=== PATIENT | male | born 1960 | race Caucasian/White ===

== ENCOUNTER 2018-06-24 18:09 | Inpatient (IN) | payer OTHER ==
[~2018-06-24] VITALS: Ht 182.9 cm; Wt 68.0 kg
--- NOTE | ~2018-06-24 | H ---
[facility] [place] [address] HISTORY AND PHYSICAL Name: ANGELNILESH GHOSH Room #: 462-P ADM IN M.R.#: [id number] Admission: 06/24/18 Attend Phys: Ric Ferrari Discharge: Date of : 62 Report #: [id number] THIS REPORT FOR: //name// CC: Dallas Bruce DATE OF SERVICE: 06/24/2018 CHIEF COMPLAINT: Right leg pain and swelling. HISTORY OF PRESENT ILLNESS: The patient is a 57-year-old gentleman who has had about a week of increased pain, swelling and redness of his right lower leg. He has noted a swollen area about the size of a half dollar in the mid pretibial area for several days. He was seen in the office and an outpatient culture was obtained, which revealed MRSA. He had been treated with Augmentin without improvement. He has now been admitted for IV antibiotic and definitive therapy. PAST MEDICAL HISTORY: Hyperthyroidism. 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 He has had skin lesions in the past. PAST SURGICAL HISTORY: None. FAMILY HISTORY: Noncontributory. SOCIAL HISTORY: A 95-pmqw-fmdx history of smoking. Denies chronic alcohol use. ALLERGIES: None. MEDICATIONS: Methimazole 10 mg daily. REVIEW OF SYSTEMS: He denies headache, chest pain, shortness of breath, abdominal pain, nausea, vomiting, diarrhea, constipation, dysuria, or syncope. OBJECTIVE: VITAL SIGNS: Temperature 36.6, pulse 57, respirations 14, blood pressure 112/68, O2 sat 96% on room air. GENERAL: He is awake and alert, in no distress. HEAD AND NECK: Unremarkable. LUNGS: Clear. HEART: Regular. ABDOMEN: Soft, normoactive bowel sounds. EXTREMITIES: No edema. On the right mid pretibial area, there is a byjs-osxxtx-xjqhm furuncle with some purulent drainage and surrounding erythema. NEUROLOGIC: Intact. ASSESSMENT: Cellulitis and abscess of the right lower leg. [facility] [address] [place] [address] HISTORY AND PHYSICAL Name: NILESH ORTIZ [facility] Room #: 462- ADM IN M.R.#: [id number] Admission: 06/24/18 Attend Phys: Ric Ferrari Discharge: Date of : 62 Report #: [id number] PLAN: Dr. Gary King has ordered analgesics and antibiotics and Dr. Lucio has been consulted for debridement. <ELECTRONICALLY SIGNED> By: Benjamin Jonas MD 06/25/18 1226 [id number] Benjamin Jonas MD /nt
--- NOTE | ~2018-06-24 | D ---
[facility] [place] [address] DISCHARGE SUMMARY Name: NILESH ORTIZ Room #: 462-P [facility] IN M.R.#: [id number] Admission: 06/24/18 Attend Phys: Ric Ferrari Discharge: 06/27/18 Date of : 62 Report #: [id number] THIS REPORT FOR: //name// CC: Dallas Bruce DATE OF SERVICE: 06/27/2018 FINAL DIAGNOSES: Abscess of the right mid lower leg. HOSPITAL COURSE: The patient was admitted with concern of infection and abscess of the right lower leg. Infectious Disease saw him and placed him on Ancef. Dr. Lucio performed a simple incision and debridement with packing of the wound daily. He received 2 more days of IV antibiotics and by the day of discharge the wound was no longer draining. It was relatively flat and fairly shallow. He had instruction on wound care and packing. DISPOSITION: he will be discharged home. Diet and activity as tolerated with Bactrim twice a day for 7 days. He will pack and dress the wound daily, not to submerge until he has healed. Follow up in the office next week before returning to work. By: 1605 1615 Benjamin Jonas MD /nt
[2018-06-24 18:05] VITALS: BP 132/77
[2018-06-24] MEDS ORDERED: METHIMAZOLE10 MG PO (18:59)
[2018-06-24 19:55] VITALS: BP 125/68
[2018-06-24 23:59] VITALS: BP 103/55
[2018-06-25 03:13] VITALS: BP 104/57
[2018-06-25 06:46] LABS: HEMOGLOBIN 12.7 gm/dL (14.0-18.0); MCH 32.6 pg (26.0-34.0); MCHC 33.5 g/dL (28.0-37.0); MCV 97.3 fL (80.0-100.0); PLATELET COUNT 300 thou/uL (150-400); RBC 3.91 mil/uL (4.50-6.00); RDW 12.7 % (10.5-14.5); WBC 5.8 thou/uL (4.0-11.0)
[2018-06-25 06:59] LABS: ALBUMIN 2.9 g/dL (3.4-5.0); CALCIUM 9.7 mg/dL (8.5-10.1); CREATININE 0.9 mg/dL (0.7-1.3); POTASSIUM 3.9 mmol/L (3.5-5.1); TOTAL BILIRUBIN 0.6 mg/dL (<0.1-1.0); TOTAL PROTEIN 6.9 g/dL (6.4-8.2)
[2018-06-25 07:43] VITALS: BP 112/68
[2018-06-25 08:58] LABS: ABSOLUTE NEUTROPHILS 1.6 thou/uL (1.4-8.2); PLATELET ESTIMATE NORMAL
[2018-06-25 15:24] VITALS: BP 112/64
[2018-06-25 19:22] VITALS: BP 121/70
[2018-06-26 05:44] VITALS: BP 155/71
[2018-06-26 08:34] VITALS: BP 122/60
[2018-06-26 17:08] VITALS: BP 126/62
[2018-06-26 19:44] VITALS: BP 130/62
[2018-06-27 04:27] VITALS: BP 117/65
[2018-06-27 08:00] VITALS: BP 112/67
[2018-06-27] MEDS ORDERED: BACTRIM DS TAB1 EACH PO (08:17)
[2018-06-27] MEDS ORDERED: HYDROXYZINE HCL10 M1 PO (08:17)
[2018-06-27 11:39] VITALS: BP 112/67
== END 2018-06-27 13:25 | disposition home or self-care (01) | DRG 603 ==
LOC: 4W 18:09
PROVIDERS: Internal Medicine
PROC: 0HBKXZZ Excision of Right Lower Leg Skin, External Approach (ICD-10-PCS; principal; 2018-06-27)
DX: L03.115 Cellulitis of right lower limb (principal); L02.415 Cutaneous abscess of right lower limb; E05.90 Thyrotoxicosis, unspecified without thyrotoxic crisis or storm; L28.0 Lichen simplex chronicus; F41.9 Anxiety disorder, unspecified; Z87.891 Personal history of nicotine dependence; Z79.899 Other long term (current) drug therapy
CPT/HCPCS: 10045; 10047

== ENCOUNTER 2018-08-12 23:38 | Emergency (ER) | payer OTHER ==
[~2018-08-12] VITALS: Ht 182.9 cm; Wt 69.4 kg
[~2018-08-12 23:38] MED LIST: BACTRIM DS TAB1 EACH PO; HYDROXYZINE HCL10 M1 PO; METHIMAZOLE10 MG PO
[2018-08-12] MEDS ORDERED: AMOXICILLIN 50500 MG PO (23:58)
[2018-08-13 00:18] LABS: HEMATOCRIT 40.3 % (42.0-52.0); HEMOGLOBIN 13.8 gm/dL (14.0-18.0); MCHC 34.2 g/dL (28.0-37.0); MCV 93.7 fL (80.0-100.0); PLATELET COUNT 175 thou/uL (150-400); RBC 4.31 mil/uL (4.50-6.00); RDW 13.2 % (10.5-14.5)
[2018-08-13 00:27] LABS: CALCIUM 9.5 mg/dL (8.5-10.1); POTASSIUM 4.4 mmol/L (3.5-5.1)
[2018-08-13 00:33] LABS: ALBUMIN 2.9 g/dL (3.4-5.0); TOTAL BILIRUBIN 0.5 mg/dL (<0.1-1.0); TOTAL PROTEIN 6.9 g/dL (6.4-8.2)
[2018-08-13 01:02] LABS: ABSOLUTE NEUTROPHILS 8.5 thou/uL (1.4-8.2)
== END 2018-08-13 02:09 | disposition home or self-care (01) ==
LOC: ER 23:38
PROVIDERS: Physician Assistant
DX: L03.116 Cellulitis of left lower limb (principal); R00.0 Tachycardia, unspecified; F17.210 Nicotine dependence, cigarettes, uncomplicated; E03.9 Hypothyroidism, unspecified

== ENCOUNTER 2019-10-30 18:23 | Inpatient (IN) | payer BC, OTHER ==
[~2019-10-30] VITALS: Ht 182.9 cm; Wt 80.9 kg
[~2019-10-30 18:23] MED LIST changes: +AMOXICILLIN 50500 MG PO
[2019-10-30 18:40] LABS: ABSOLUTE NEUTROPHILS 3.7 thou/uL (1.4-8.2); BASOPHILS 0.5 % (0.0-2.0); EOSINOPHILS 0.4 % (0.0-3.0); HEMATOCRIT 48.4 % (42.0-52.0); HEMOGLOBIN 16.2 gm/dL (14.0-18.0); LYMPHOCYTES 13.7 % (24.0-44.0); MCH 33.6 pg (26.0-34.0); MCHC 33.5 g/dL (28.0-37.0); MCV 100.5 fL (80.0-100.0); MONOCYTES 11.7 % (1.0-8.0); PLATELET COUNT 201 thou/uL (150-400); POLYS 73.7 % (36.0-66.0); RBC 4.82 mil/uL (4.50-6.00); RDW 14.8 % (10.5-14.5); WBC 5.1 thou/uL (4.0-11.0)
[2019-10-30 18:49] LABS: ANION GAP 7 mmol/L (7-16); BUN 12 mg/dL (7-18); CALCIUM 9.7 mg/dL (8.5-10.1); CHLORIDE 100 mmol/L (98-107); CO2 30 mmol/L (21-32); CREATININE 1.1 mg/dL (0.7-1.3); GLUCOSE 95 mg/dL (74-106); POTASSIUM 3.7 mmol/L (3.5-5.1); SODIUM 137 mmol/L (136-145)
[2019-10-30 18:59] LABS: SGOT 18 U/L (15-37); SGPT 33 U/L (30-65); TOTAL BILIRUBIN 0.6 mg/dL (<0.1-1.0); TOTAL PROTEIN 8.4 g/dL (6.4-8.2); TROPONIN-I <0.06 ng/mL (<0.06)
[2019-10-30 22:09] VITALS: BP 139/82
[2019-10-30 23:05] VITALS: BP 114/64
[2019-10-30 23:13] VITALS: BP 112/59
--- NOTE | 2019-10-31 04:01 | NUR ---
PT NEW ADMIT. ALERT AND ORIENTED. PT ORIENTED TO ROOM AND CALL LIGHT SYSTEM. ADMISSION ASSESSMENT COMPLETE. PT DENIES CHEST PAIN, OR NAUSEA AND VOMITING. DR KYE RODRIGUEZ NOTIFIED ABOUT PT'S ADMISSION. NO NEW ORDERS GIVEN. PT VOIDS IN TOILET, UP AD ROMEL. CONSENT FORS SIGNS. SR WITH 1D AV BLOCK ON THE MONITOR. NO FURTHER CONCERNS CURRENTLY.
[2019-10-31 04:46] VITALS: BP 94/50
[2019-10-31 07:15] VITALS: BP 105/62
[2019-10-31] MEDS ORDERED: CEFDINIR300 MG PO (08:22)
[2019-10-31] MEDS ORDERED: AZITHROMYCIN500 MG PO (08:23)
[2019-10-31 10:26] VITALS: BP 105/62
[2019-10-31 11:14] VITALS: BP 106/69
--- NOTE | 2019-10-31 14:29 | H ---
[facility] [place] [address] HISTORY AND PHYSICAL Name: NILESH ORTIZ Room #: 213-P ADM IN M.R.#: [id number] Admission: 10/30/19 Attend Phys: Ric Ferrari Discharge: Date of : 62 Report #: [id number] THIS REPORT FOR: //name// CC: Dallas King DATE OF SERVICE: 10/31/2019 CHIEF COMPLAINT: Fever. HISTORY OF PRESENT ILLNESS: The patient is a 59-year-old gentleman who came to the Emergency Room with a 1-day history of fever, chills, shaking and general fatigue. He travels for work and just returned from [place] Thursday night when he awoke Thursday feeling extremely fatigued. He was generally weak all over and had a little bit of a cough throughout the day. He had some shaking chills off and on. His cough caused a little bit of chest discomfort or pain in the left side of his chest with deep inspiration or cough. Overnight on Thursday and Thursday morning, he developed high fever with body aches, headache and congested cough. 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 He reports compliance with his methimazole 10 mg t.i.d. and denies missing any doses. 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 PAST MEDICAL HISTORY: Hyperthyroidism, cellulitis, herpes zoster. FAMILY HISTORY: Noncontributory. SOCIAL HISTORY: He has got a 67-myhf-jmmq history of smoking. 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 ALLERGIES: None. MEDICATIONS: Methimazole 10 mg t.i.d. REVIEW OF SYSTEMS: He denies headache, visual change, nausea, vomiting, diarrhea, constipation, dysuria, syncope or fall weight loss. OBJECTIVE: VITAL SIGNS: Temperature 37, pulse 81, respirations 18, blood pressure 94/50, O2 sat 94% on room air. GENERAL: He is awake and alert, in no distress. HEAD AND NECK: Unremarkable. LUNGS: Faint crackles in the left base. Coarse productive cough. No wheezing. No stridor. HEART: Regular, no murmur. ABDOMEN: Soft, normoactive bowel sounds. [facility] [address] [place] [address] HISTORY AND PHYSICAL Name: NILESH ORTIZ DAVINA Room #: 213-P [facility] IN M.R.#: [id number] Admission: 10/30/19 Attend Phys: Ric Ferrari Discharge: Date of : 62 Report #: [id number] EXTREMITIES: No edema. NEUROLOGIC: Cranial nerves intact. Speech is fluent. He has no tremor. No lid lag. LABORATORY DATA: Pertinent findings include TSH of less than 0.007, T4 of 1.6, T3 is 7.9. Chest x-ray suggests a left basilar infiltrate. ASSESSMENT: 1. Community-acquired pneumonia. 2. Hyperthyroidism. PLAN: He will receive IV antibiotics and his usual home medications. He is eager for early discharge as he travels for work and will consider followup as an outpatient for surgical intervention or radioactive iodine. He is not interested in pursuing surgical intervention during this hospital stay as he has work commitments later in the week. If he is clinically stable, anticipate early discharge to home with oral antibiotics. <ELECTRONICALLY SIGNED> By: Benjamin Jonas MD 10/31/19 1429 [id number] Benjamin Jonas MD /nt
[2019-10-31 15:35] VITALS: BP 107/67
--- NOTE | 2019-10-31 18:14 | NUR ---
ASSUMED CARE AT SHIFT CHANGE, ALERT AND ORIENTED X4, DENIES CP BUT PATIENT STATED THAT HE "FEEL LIKE CRAB". VSS AND AFEBRILE. DR BAI NOTIFIED, PATIENT DISCHAGE ON HOLD, NEW ORDERS RECIEVED. C/O HEADACHE MEDICATED. WILL CONTINUE WITH POC.
[2019-10-31 20:00] VITALS: BP 122/62
--- NOTE | 2019-11-01 00:29 | NUR ---
ASSESSMENTS CHARTED, PAIN MEDS CHARTED. FAMILY AT BEDSIDE. FAMILY IS CONCERNED THAT PATIENT WILL NOT STAY IN HOSPITAL, BUT LEAVE AMA. CONCERNED ABOUT HIS CARE NEEDS IF HE LEAVES. PATIENT RESTING IN BED, UP AT ROMEL, C/O HEADACHE 06/18. PLAN IS TO RECEIVE SEVERAL ANTIBIOTICS IN AM THEN GO HOME.
[2019-11-01 04:30] VITALS: BP 118/66
[2019-11-01 05:16] LABS: HEMATOCRIT 44.5 % (42.0-52.0); HEMOGLOBIN 14.7 gm/dL (14.0-18.0); MCH 33.2 pg (26.0-34.0); MCV 100.5 fL (80.0-100.0); RBC 4.43 mil/uL (4.50-6.00); RDW 14.8 % (10.5-14.5); WBC 4.7 thou/uL (4.0-11.0)
[2019-11-01 05:24] LABS: CALCIUM 8.8 mg/dL (8.5-10.1); POTASSIUM 3.9 mmol/L (3.5-5.1)
[2019-11-01 07:26] VITALS: BP 107/74
--- NOTE | 2019-11-01 12:25 | NUR ---
ASSUMED CARE 0700. ALERT X4, VSS, PROGRESSED WITH GOALS AND DC HOME WITH SELF CARE. DISCHARGE PAPERS REVIEWED, IV AND HEART MONITOR REMOVED.
--- NOTE | 2019-11-03 12:54 | EKG ---
[address] [address] ELECTROCARDIOGRAM REPORT Name: ANGELNILESHBRIA GHOSH Room #: 213-P [facility] IN M.R.#: [id number] Admission: 10/30/19 Attend Phys: Ric Ferrari Discharge: 11/01/19 Date of : 62 Report #: [id number] THIS REPORT FOR: //name// [facility] ED Test Date: 2019-10-30 Test Time: 18:38:00 Pat Name: NILESH ORTIZ Department: Room: [facility], [facility] Gender: M Airport Clerk: : 1960 Requested By: Dwayne Singh Order Number: [id number] MD: Alec Clement Measurements Intervals Mineral Rate: 76 P: -42 VT: 249 QRS: 23 QRSD: 99 T: 56 QT: 357 QTc: 402 Interpretive Statements Sinus rhythm Prolonged VT interval No previous ECG available for comparison Electronically Signed On 11-03-2019 12:54:08 CUSTOMER SERVICE OFFICER by Alec Clement [email or web address] <ELECTRONICALLY SIGNED> By: Alec Clement MD 11/03/19 1254 [id number] 37 Alec Clement MD /RYAN
--- NOTE | 2019-11-06 16:10 | D ---
[facility] [place] [address] DISCHARGE SUMMARY Name: NILESH ORTIZ Room #: 213-P [facility] IN M.R.#: [id number] Admission: 10/30/19 Attend Phys: Ric Ferrari Discharge: 11/01/19 Date of : 62 Report #: [id number] THIS REPORT FOR: //name// CC: Dallas King FINAL DIAGNOSES: 1. Community-acquired pneumonia. 2. Hyperthyroidism. HOSPITAL COURSE: The patient was admitted from home with fever, chills, body aches and general fatigue. He was concerned regarding thyroid crisis, which he has been admitted for several years ago in the past. His thyroid levels were consistent with hyperthyroidism; however, his chest x-ray suggested a left basilar infiltrate. He had a coarse productive cough. I felt that his issues are more related to an acute infection from pneumonia rather than thyroid storm. He was continued on his methimazole and he received one dose of propranolol in the ER. He remained afebrile with normal vital signs the rest of his hospital stay. He received IV antibiotics, nebulized treatments and mucolytics. PHYSICAL EXAMINATION: On the day of discharge: GENERAL: He was awake and alert with stable vital signs. He was afebrile. He had stable oxygen saturations on room air. LUNGS: Had some inspiratory crackles in the left base. HEART: Regular. ABDOMEN: Soft, normoactive bowel sounds. EXTREMITIES: No edema. DISPOSITION: He is discharged to home with diet and activity as tolerated. Resume all home medications plus Omnicef for 1 week and Zithromax for 5 days. Follow up with Dr. King in 1-2 weeks. <ELECTRONICALLY SIGNED> By: Benjamin Jonas MD 11/06/19 1610 1033 1047 Benjamin Jonas MD /nt
== END 2019-11-01 11:20 | disposition home or self-care (01) | DRG 643 ==
LOC: ER 18:23 → 2N 21:53 → EROBS 21:53 → 2N 22:46
PROVIDERS: Emergency Medicine; Internal Medicine Geriatric Medicine; ADMIT Internal Medicine
DX: E05.91 Thyrotoxicosis, unspecified with thyrotoxic crisis or storm (principal); J18.9 Pneumonia, unspecified organism; Z79.899 Other long term (current) drug therapy; Z87.891 Personal history of nicotine dependence
CPT/HCPCS: 10081